=== PATIENT | male | born 1965 | race Caucasian/White ===

== ENCOUNTER 2017-03-10 21:02 | Emergency (ER) | payer MEDICAID, OTHER ==
[~2017-03-10] VITALS: Ht 177.8 cm; Wt 103.9 kg
[~2017-03-10 21:02] MED LIST: ACCU40TA10 PO; ALPR1; HYDR-3533 PO; LIPI40TA PO; LISD60 PO; NAPR-571 PO; NOVORP2 SQ; ROBA750T3 PO; TOPR50TA PO; ULTR50TA PO; ZOLP10TA3 PO
[2017-03-10 21:04] VITALS: BP 160/93; PULSE 87; RESP 16; TEMP 97.9; O2SAT 97
[2017-03-10] MEDS ORDERED: NEUR300C PO (21:43)
[2017-03-10] MEDS ORDERED: VICT18IN SQ (21:43)
[2017-03-10] MEDS ORDERED: LEVEMIR SQ (21:43)
[2017-03-10] MEDS ORDERED: INSU100V2 SQ (21:43)
[2017-03-10] MEDS ORDERED: HYDR-3533 PO (21:43)
[2017-03-10] MEDS ORDERED: XANA1TAB2 PO (21:43)
[2017-03-10] MEDS ORDERED: QUIN40TA2 PO (21:43)
[2017-03-10] MEDS ORDERED: TOPR50TA PO (21:43)
[2017-03-10] MEDS ORDERED: CLIN1CAP6 PO (21:43)
--- NOTE | 2017-03-10 22:03 | PD ---
HPI Chief Complaint: Pain: Acute or Chronic Time Seen by Provider: 21:42 Travel History International Travel<30 days: No Contact w/Intl Traveler<30days: No Traveled to known affect area: No History of Present Illness HPI This 51-year-old male HAs multiple complaints. He does notice some fluid retention the last couple of days. He says he is having quite a bit of weight over the last few months. He says that yesterday he noted that his left foot was not and that is been fairly persistent. He is not having headaches. He does have a history of back surgery and has severe degenerative disease of the back. He has not been having an increase in his back pain. He has not noted any muscular weakness. He's noted some swelling of his ankles. He is a brittle diabetic and admits he has not been very well-controlled recently PFSH Past Medical History Arthritis: Yes Blood Disorders: No Anxiety: Yes Depression: Yes Cancer: No Cardiovascular Problems: Yes High Cholesterol: Yes Diabetes: Yes Patient Takes Glucophage: No Diminished Hearing: Yes (STATES HAS HEARING PRBLEMS,.) Endocrine: No Gastrointestinal Disorders: Yes (COLITIS) Genitourinary: Yes Hypertension: Yes Immune Disorder: No Musculoskeletal: Yes Neurologic: No Psychiatric: Yes Respiratory: No Immunizations Current: Yes Tetanus Vaccination: > 5 Years Influenza Vaccination: Yes Past Surgical History Abdominal Surgery: Yes (APPENDECTOMY) Appendectomy: Yes Other Surgery: Yes (rt wrist) Social History Alcohol Use: No Tobacco Use: No (ELECTRONIC CIGARETTES) Substance Use: No Allergies-Medications (Allergen,Severity, Reaction): Coded Allergies: Penicillin (Verified Allergy, Severe, Hives, 03/10/17) Reported Meds & Prescriptions Reported Meds & Active Scripts Active Reported Xanax (Alprazolam) 1 Mg Tab 1 Mg PO HS PRN Lortab (Hydrocodone-Acetaminophen) 5-325 Mg Tab 1 Tab PO Q6H PRN Neurontin (Gabapentin) 300 Mg Cap 300 Mg PO TID PRN Quinapril (Quinapril HCl) 40 Mg Tab 40 Mg PO DAILY Toprol XL (Metoprolol Succinate) 50 Mg Tab 50 Mg PO BID Clindamycin (Clindamycin HCl) 300 Mg Cap 300 Mg PO Q6H Victoza Inj (Liraglutide Inj) 18 Mg/3 Ml Pen 1.8 Mg SQ ONCE Levemir Inj (Insulin Detemir) 1,000 unit/ 10 ML Vial 50 Units SQ DAILY Do not mix with any other Insulin. Humulin R Inj (Insulin Human Regular) 1,000 Unit/10 Ml Vial 1 Units SQ DIRECTED Review of Systems General / Constitutional: No: Fever, Chills Eyes: No: Diploplia, Blurred Vision HENT: No: Headaches Cardiovascular: No: Chest Pain or Discomfort, Palpitations Respiratory: No: Cough, Shortness of Breath Gastrointestinal: No: Nausea, Vomiting, Abdominal Pain Genitourinary: Positive: Frequency Musculoskeletal: Positive: Arthralgias Neurologic: Positive: Sensory Disturbance, No: Paresthesia Endocrine: No: Heat Intolerance, Cold Intolerance Hematologic/Lymphatic: No: Easy Bruising Physical Exam Narrative GENERAL: Well-developed male SKIN: Focused skin assessment warm/dry. HEAD: Atraumatic. Normocephalic. EYES: Pupils equal and round. No scleral icterus. No injection or drainage. ENT: No nasal bleeding or discharge. Mucous membranes pink and moist. NECK: Trachea midline. No JVD. CARDIOVASCULAR: Regular rate and rhythm. No murmur appreciated. RESPIRATORY: No accessory muscle use. Clear to auscultation. Breath sounds equal bilaterally. GASTROINTESTINAL: Abdomen soft, non-tender, nondistended. Hepatic and splenic margins not palpable. MUSCULOSKELETAL: No obvious deformities. No clubbing. No cyanosis. Trace edema. NEUROLOGICAL: Awake and alert. No obvious cranial nerve deficits. Motor grossly within normal limits. Normal speech. He does have diminished sensation on the left foot PSYCHIATRIC: Appropriate mood and affect; insight and judgment normal. Data Data Last Documented VS Vital Signs Date Time Temp Pulse Resp B/P Pulse Ox O2 Delivery O2 Flow Rate FiO2 03/10/17 21:26 03/10/17 21:04 97.9 87 16 97 Orders Complete Blood Count With Diff (03/10/17 22:00) Comprehensive Metabolic Panel (03/10/17 22:00) Urinalysis - C+S If Indicated (03/10/17 22:00) Labs Laboratory Tests Test 03/10/17 22:30 White Blood Count 7.2 TH/MM3 Red Blood Count 4.72 MIL/MM3 Hemoglobin 14.4 GM/DL Hematocrit 42.8 % Mean Corpuscular Volume 90.7 FL Mean Corpuscular Hemoglobin 30.6 PG Mean Corpuscular Hemoglobin 33.8 % Concent Red Cell Distribution Width 12.7 % Platelet Count 236 TH/MM3 Mean Platelet Volume 7.6 FL Neutrophils (%) (Auto) 56.6 % Lymphocytes (%) (Auto) 32.6 % Monocytes (%) (Auto) 8.7 % Eosinophils (%) (Auto) 2.0 % Basophils (%) (Auto) 0.1 % Neutrophils # (Auto) 4.2 TH/MM3 Lymphocytes # (Auto) 2.3 TH/MM3 Monocytes # (Auto) 0.6 TH/MM3 Eosinophils # (Auto) 0.1 TH/MM3 Basophils # (Auto) 0.0 TH/MM3 CBC Comment DIFF FINAL Differential Comment Urine Color YELLOW Urine Turbidity CLEAR Urine pH 5.5 Urine Specific Brick 1.028 Urine Protein NEG mg/dL Urine Glucose (UA) 1000 OR GREATER mg/dL Urine Ketones NEG mg/dL Urine Occult Blood NEG Urine Nitrite NEG Urine Bilirubin NEG Urine Leukocyte Esterase NEG Urine RBC 0-2 /hpf Urine WBC 0-2 /hpf Urine Squamous Epithelial 0-5 /hpf Cells Urine Bacteria NONE /hpf Microscopic Urinalysis Comment CULT NOT INDICATED Sodium Level 138 MEQ/L Potassium Level 3.9 MEQ/L Chloride Level 101 MEQ/L Carbon Dioxide Level 29.6 MEQ/L Anion Gap 7 MEQ/L Blood Urea Nitrogen 17 MG/DL Creatinine 1.00 MG/DL Estimat Glomerular Filtration 79 ML/MIN Rate Random Glucose 256 MG/DL Calcium Level 9.3 MG/DL Total Bilirubin 0.3 MG/DL Aspartate Amino Transf 28 U/L (AST/SGOT) Alanine Aminotransferase 45 U/L (ALT/SGPT) Alkaline Phosphatase 78 U/L Total Protein 7.4 GM/DL Albumin 3.7 GM/DL [facility] Medical Decision Making Medical Screen Exam Complete: Yes Emergency Medical Condition: Yes Medical Record Reviewed: Yes Differential Diagnosis Differential includes neuropathy, radiculopathy, uncontrolled diabetes Narrative Course Blood sugar is elevated to 15 patient will manage this at home. Was concerned he might have nephrotic syndrome as he does have some edema. His serum albumin is normal and he does not have protein in his urine. He is stable for discharge. Diagnosis Primary Impression: Neuropathy Additional Impression: Diabetes Bakari Lehman MD March 10, 2017 22:03
[2017-03-10 22:43] LABS: AUTOMATED NEUTROPHIL # 4.2 TH/MM3 (1.8-7.7); BASOPHIL % 0.1 % (0.0-2.0); EOSINOPHIL # 0.1 TH/MM3 (0-0.4); HEMATOCRIT 42.8 % (39.0-51.0); HEMO FLAGS DIFF FINAL; LYMPH % 32.6 % (9.0-44.0); LYMPHOCYTE # 2.3 TH/MM3 (1.0-4.8); MEAN CELL VOLUME 90.7 FL (80.0-100.0); MEAN CORPUSCULAR HEMOGLOBIN 30.6 PG (27.0-34.0); MEAN CORPUSCULAR HGB CONC 33.8 % (32.0-36.0); MONO % 8.7 % (0.0-8.0); NEUT % 56.6 % (16.0-70.0); PLATELET COUNT 236 TH/MM3 (150-450); RED BLOOD COUNT 4.72 MIL/MM3 (4.50-5.90); RED CELL DISTRIBUTION WIDTH 12.7 % (11.6-17.2); WHITE BLOOD COUNT 7.2 TH/MM3 (4.0-11.0)
[2017-03-10 22:45] LABS: BLOOD, URINE NEG (NEG); KETONE, URINE NEG (NEG); NITRITE,URINE NEG (NEG); PH, URINE 5.5 (5.0-8.5)
[2017-03-10 22:50] LABS: CHLORIDE 101 MEQ/L (98-107); POTASSIUM 3.9 MEQ/L (3.5-5.1); SODIUM (NA) 138 MEQ/L (136-145)
[2017-03-10 22:55] LABS: ANION GAP 7 MEQ/L (5-15); BICARBONATE 29.6 MEQ/L (21.0-32.0); BLOOD UREA NITROGEN 17 MG/DL (7-18)
[2017-03-10 22:58] LABS: ALT (GPT) 45 U/L (12-78); AST (GOT) 28 U/L (15-37); GLOMERULAR FILTRATION RATE 79 ML/MIN (>89)
[2017-03-10 22:59] LABS: TOTAL BILIRUBIN ADULT 0.3 MG/DL (0.2-1.0)
[2017-03-10 23:01] LABS: ALKALINE PHOSPHATASE 78 U/L (45-117)
[2017-03-10 23:14] LABS: GLUCOSE,URINE 1000 OR GREATER mg/dL (NEG); URINE COLOR YELLOW (YELLW/STRAW)
[2017-03-10 23:15] LABS: COMMENT (UR) CULT NOT INDICATED; CULTURE IF INDICATED CULT NOT INDICATED; RBC, URINE 0-2 /hpf (0-3); SQUAMOUS EPITHELIAL CELL URINE 0-5 /hpf (0-5); WBC, URINE 0-2 /hpf (0-5)
[2017-03-10 23:43] VITALS: BP 155/92; PULSE 76; RESP 18; O2SAT 97
== END 2017-03-10 23:58 | disposition home or self-care (01) ==
LOC: PHEFT 21:02 → PHED 23:58
DX: G62.9 Polyneuropathy, unspecified (principal); E11.9 Type 2 diabetes mellitus without complications; I10 Essential (primary) hypertension; Z88.0 Allergy status to penicillin; Z79.4 Long term (current) use of insulin
CPT/HCPCS: 80053; 81001; 85025; 99283